=== PATIENT | male | born 1955 | race Caucasian/White ===

== ENCOUNTER 2023-01-25 11:36 | Day surgery (SDC) | payer MEDICARE, BC ==
[2023-01-21 08:20] LABS: BASOPHILS # (AUTO) 0.1 X10'3 (0-0.2); BASOPHILS % (AUTO) 1.2 % (0-1); EOSINOPHILS # (AUTO) 0.1 X10'3 (0-0.9); EOSINOPHILS % (AUTO) 1.6 % (0-6); HEMATOCRIT 44.8 % (42.0-52.0); HEMOGLOBIN 15.3 g/dl (14.0-17.9); LYMPHOCYTES # (AUTO) 2.1 X10'3 (1.1-4.8); LYMPHOCYTES % (AUTO) 31.2 % (21-51); MEAN CORPUSCULAR HEMOGLOBIN 32.3 PG (27.0-31.0); MEAN CORPUSCULAR HGB CONC 34.2 g/dL (33.0-36.5); MEAN CORPUSCULAR VOLUME 94.5 FL (78-98); MEAN PLATELET VOLUME 8.7 FL (7.4-10.4); MONOCYTES # (AUTO) 0.9 X10'3 (0-0.9); MONOCYTES % (AUTO) 13.3 % (2-12); NEUTROPHILS # (AUTO) 3.5 X10'3 (1.8-7.7); NEUTROPHILS % (AUTO) 52.7 % (42-75); PLATELET COUNT 238 X10'3 (140-440); RED BLOOD COUNT 4.73 X10'6 (4.70-6.10); RED CELL DISTRIBUTION WIDTH 13.3 % (11.5-14.5); WHITE BLOOD COUNT 6.6 X10'3 (4.5-11.0)
[2023-01-21 08:33] LABS: APTT 25 SECONDS (22-32)
[2023-01-21 08:36] LABS: ALBUMIN 4.3 G/DL (3.4-5.0); ANION GAP 10 (8-16); BLOOD UREA NITROGEN 26 MG/DL (7-18); BUN/CREATININE RATIO 14.6 (10.0-20.0); CALCIUM 9.4 MG/DL (8.5-10.1); CHLORIDE 104 MMOL/L (99-107); CHOL/HDL RATIO 3.8 (0.00-4.99); CHOLESTEROL 169 MG/DL (0-200); CREATININE 1.78 MG/DL (0.60-1.10); GLUCOSE 103 MG/DL (70-104); HDL CHOLESTEROL 45 MG/DL (35-60); LDL CHOLESTEROL 103 MG/DL (50-100); POTASSIUM 4.5 MMOL/L (3.5-5.1); SODIUM 140 MMOL/L (135-145); TOTAL CARBON DIOXIDE 26.2 MMOL/L (24-32); TRIGLYCERIDES 115 MG/DL (20-135); eGFR 38 ML/MIN
[2023-01-25] VITALS (7 sets, daily range): BP systolic 125–138; BP diastolic 64–72
[~2023-01-25] VITALS: Ht 172.7 cm; Wt 95.6 kg
[2023-01-25] MEDS ORDERED: normal saline 1,000 ML IV SCH (11:50)
[2023-01-25] MEDS ORDERED: LORazepam 0.5 MG tablet PO PRN (11:50)
[2023-01-25] MEDS ORDERED: diphenhydrAMINE 25mg capsule PO PRN (11:50)
[2023-01-25] MEDS ORDERED: fentaNYL/PF 50MCG/1 ML 2ML syringe ONE (12:08)
[2023-01-25] MEDS ORDERED: LIDOcaine 1% (10mg/ml) 2ml vial ONE (12:08)
[2023-01-25] MEDS ORDERED: nitroGLYCERIN-Tridil 50MG/D5W 250 ML IV ONE (12:08)
[2023-01-25] MEDS ORDERED: verapamil 2.5 mg/ml inj IV ONE (12:08)
[2023-01-25] MEDS ORDERED: midazolam 1 mg/ML 2ml injection ONE (12:08)
[2023-01-25] MEDS ORDERED: iohexol 350MG/ML 100ml bottle IV ONE (12:09)
[2023-01-25] MEDS ORDERED: heparin 1,000unit/ml 10ml vial 10 ML ONE (12:09)
[2023-01-25] MEDS ORDERED: CHLO25TA10 PO (12:23)
[2023-01-25] MEDS ORDERED: CYCL5TAB PO (12:23)
[2023-01-25] MEDS ORDERED: SIMV-42 PO (12:23)
[2023-01-25] MEDS ORDERED: AMLO-139 (12:23)
[2023-01-25] MEDS ORDERED: GABA-530 PO (12:23)
[2023-01-25] MEDS ORDERED: MULT-1085 PO (12:29)
[2023-01-25] MEDS ORDERED: ASPI-1071 PO (12:29)
[2023-01-25] MEDS ORDERED: IBUP-24 PO (12:29)
[2023-01-25] MEDS ORDERED: Vitamin B12 (12:29)
[2023-01-25 14:51] LABS: ISTAT Hct MIX 39 %PCV (42-52); ISTAT O2 SATURATION MIX VENOUS 70 % (60-80); ISTAT SOURCE BLNK
[2023-01-25 14:55] LABS: ISTAT HGB ART 12.2 g/dl (14.0-17.9); ISTAT Hct ART 36 %PCV (42-52); ISTAT O2 SATURATION ARTERIAL 97 % (95-98); ISTAT SOURCE BLNK
[2023-01-25] MEDS ORDERED: HYDROcodone/acetaminophen 10/325mg tab PO PRN (15:15)
[2023-01-25] MEDS ORDERED: HYDROcodone/acetaminophen 5mg/325mg tablet PO PRN (15:15)
== END 2023-01-25 16:40 | disposition home or self-care (01) ==
LOC: SSTAY O 11:36
PROVIDERS: ATTEND Student in an Organized Health Care Education/Training Program
DX: I34.0 Nonrheumatic mitral (valve) insufficiency (principal); I10 Essential (primary) hypertension; E78.5 Hyperlipidemia, unspecified; G47.33 Obstructive sleep apnea (adult) (pediatric); Z79.82 Long term (current) use of aspirin; Z79.899 Other long term (current) drug therapy; Z79.01 Long term (current) use of anticoagulants
CPT/HCPCS: 36415; 80048; 80061; 82803; 85014; 85025; 85610; 85730; 93460; 99152; A6258; C1769; J1644; J2250; J3010; J3490; J7030; Q0163; Q9967; 99153; A6402; C1751; C1894

== ENCOUNTER 2023-04-19 11:24 | Day surgery (SDC) | payer MEDICARE, BC ==
[~2023-04-19] VITALS: Ht 172.7 cm; Wt 98.3 kg
[2023-04-19] VITALS (17 sets, daily range): BP systolic 111–141; BP diastolic 67–91; PULSE 75–97; RESP 12–18; TEMP 97.9; O2SAT 94–99
[~2023-04-19 11:24] MED LIST: AMLO-139; ASPI-1071 PO; CHLO25TA10 PO; CYCL5TAB PO; GABA-530 PO; IBUP-24 PO; MULT-1085 PO; SIMV-42 PO; Vitamin B12
[2023-04-19] MEDS ORDERED: fentaNYL/PF 50MCG/1 ML 2ML syringe IV ONE (11:50)
[2023-04-19] MEDS ORDERED: MIDAZolam 1mg/ml 10ml vial IV ONE (11:50)
[2023-04-19] MEDS ORDERED: normal saline 1000ml 1,000 ML IV SCH (11:50)
== END 2023-04-19 15:45 | disposition home or self-care (01) ==
LOC: SSTAY O 11:24
PROVIDERS: ATTEND Student in an Organized Health Care Education/Training Program
DX: I34.0 Nonrheumatic mitral (valve) insufficiency (principal); I34.81 Nonrheumatic mitral (valve) annulus calcification; I48.91 Unspecified atrial fibrillation; I10 Essential (primary) hypertension; E78.5 Hyperlipidemia, unspecified; G47.33 Obstructive sleep apnea (adult) (pediatric); Z79.82 Long term (current) use of aspirin; Z79.899 Other long term (current) drug therapy
CPT/HCPCS: 93312; 93325; 94760; J7030; A4620

== ENCOUNTER 2023-05-02 09:31 | Outpatient (CLI) | payer MEDICARE, BC ==
[~2023-05-02 09:31] MED LIST changes: -Vitamin B12; +iohexol 350MG/ML 100ml bottle IV ONE
== END 2023-05-02 23:59 | disposition home or self-care (01) ==
LOC: RAD 09:31
PROVIDERS: ATTEND Student in an Organized Health Care Education/Training Program
DX: K40.20 Bilateral inguinal hernia, without obstruction or gangrene, not specified as recurrent (principal); I34.0 Nonrheumatic mitral (valve) insufficiency; E78.5 Hyperlipidemia, unspecified; I10 Essential (primary) hypertension; G47.33 Obstructive sleep apnea (adult) (pediatric); N28.89 Other specified disorders of kidney and ureter; K76.89 Other specified diseases of liver
CPT/HCPCS: 71275; 74174; Q9967